=== PATIENT | female | born 1980 | race Caucasian/White ===

== ENCOUNTER 2017-01-15 06:56 | Inpatient (IN) | payer OTHER ==
[~2017-01-15 06:56] MED LIST: ALBUTEROL SULF8.5 G2 AERO NEB; IBUPROFEN800 M1 PO; NORCO 5-325 TA1 EACH PO; PRENATAL VITAM1 EAC1 PO; PRILOSEC OTC20 M1 PO; PRILOSEC20 MG PO
[2017-01-15] MEDS ORDERED: FEROSUL325 M1 (08:15)
[2017-01-15] MEDS ORDERED: FOLIC ACID1 M1 (08:17)
[2017-01-15] MEDS ORDERED: NEXIUM40 M1 (08:17)
[2017-01-15 08:19] LABS: BASO % 0.2 % (0-2); EOS % 1.2 % (0-7); EOSINOPHIL ABSOLUTE COUNT 0.1 tho/cmm (0.0-0.7); HCT-HEMATOCRIT 33.8 % (34.0-49.0); HGB-HEMOGLOBIN 11.3 gm/dl (12.0-15.5); LYMPH % 28.2 % (20-45); LYMPH ABSOLUTE COUNT 2.9 tho/cmm (0.8-4.5); MCH (MEAN CORPUSCULAR HGB) 30.7 pg (28.0-32.0); MCHC MEAN CORPUSCULAR HGB CONC 33.4 % (32.0-36.0); MCV (MEAN CELL VOLUME) 91.8 fl (82.0-96.0); MEAN PLATELET VOLUME 11.2 cmc (9.4-12.4); MONO % 7.1 % (0-12); MONOCYTE ABSOLUTE COUNT 0.7 tho/cmm (0.0-1.2); NEUTROPHIL ABSOLUTE COUNT 6.4 tho/cmm (1.6-8.0); NEUTROPHIL-AUTOMATED 6.4 tho/cmm (1.6-8.0); NEUTROPHILS % 63.3 % (40-80); PLATELET COUNT 202 tho/cmm (150-450); RED BLOOD COUNT 3.68 mil/cmm (4.00-5.20); RED CELL DISTRIBUTION WIDTH 13.9 % (12.4-16.4); WHITE BLOOD COUNT 10.1 tho/cmm (4.0-10.0)
[2017-01-16 10:43] LABS: BASO % 0.1 % (0-2); EOS % 0.2 % (0-7); HCT-HEMATOCRIT 30.5 % (34.0-49.0); HGB-HEMOGLOBIN 10.5 gm/dl (12.0-15.5); IMMATURE GRANULOCYTES ABSOLUTE 0.05 tho/cmm (0-0.03); IMMATURE GRANULOCYTES PERCENT 0.3 % (0-0.3); LYMPH % 17.3 % (20-45); LYMPH ABSOLUTE COUNT 2.8 tho/cmm (0.8-4.5); MCH (MEAN CORPUSCULAR HGB) 31.3 pg (28.0-32.0); MCHC MEAN CORPUSCULAR HGB CONC 34.4 % (32.0-36.0); MCV (MEAN CELL VOLUME) 90.8 fl (82.0-96.0); MEAN PLATELET VOLUME 10.9 cmc (9.4-12.4); MONO % 6.3 % (0-12); NEUTROPHIL ABSOLUTE COUNT 12.2 tho/cmm (1.6-8.0); NEUTROPHIL-AUTOMATED 12.2 tho/cmm (1.6-8.0); NEUTROPHILS % 75.8 % (40-80); PLATELET COUNT 175 tho/cmm (150-450); RED BLOOD COUNT 3.36 mil/cmm (4.00-5.20); RED CELL DISTRIBUTION WIDTH 14.2 % (12.4-16.4)
[2017-01-16 10:55] LABS: WHITE BLOOD COUNT 16.1 tho/cmm (4.0-10.0)
[2017-01-19] MEDS ORDERED: NORCO 5-325 TA1 EACH PO (02:59)
[2017-01-19] MEDS ORDERED: IBUPROFEN800 M1 PO (03:00)
== END 2017-01-19 12:04 | DRG 766 ==
LOC: LDR 06:56 → OBGE 23:40
PROVIDERS: ADMIT Specialist
PROC: 10D00Z1 Extraction of Products of Conception, Low, Open Approach (ICD-10-PCS; principal; 2017-01-15)
PROC: 3E033VJ Introduction of Other Hormone into Peripheral Vein, Percutaneous Approach (ICD-10-PCS; 2017-01-15)
PROC: 10907ZC Drainage of Amniotic Fluid, Therapeutic from Products of Conception, Via Natural or Artificial Opening (ICD-10-PCS; 2017-01-15)
DX: O99.513 Diseases of the respiratory system complicating pregnancy, third trimester (principal); J45.909 Unspecified asthma, uncomplicated; O69.81X0 Labor and delivery complicated by cord around neck, without compression, not applicable or unspecified; Z3A.39 39 weeks gestation of pregnancy; Z37.0 Single live birth; O76 Abnormality in fetal heart rate and rhythm complicating labor and delivery; O32.4XX0 Maternal care for high head at term, not applicable or unspecified
CPT/HCPCS: J0690; J1170; J2590; J2795; J7050